=== PATIENT | male | born 1955 | race Caucasian/White ===

== ENCOUNTER 2021-04-03 13:31 | Emergency (ER) | payer MEDICARE ==
[2021-04-03 14:03] VITALS: BP 113/60; O2SAT 97
--- NOTE | 2021-04-03 15:20 | ERPHSYRPT ---
- History of Present Illness Source: patient Patient Subjective Stated Complaint: "fell off back bumper of truck this am and fell onto left shoulder Triage Nursing Assessment: aaox3, walked in, c/o left shoulder pain and mild left hip pain s/p fell off bumper of truck this am. Has abrasion to right lateral knee area, denies head/neck injury. No other injuries noted. Physician History: 65 yo wm fell of truck before ER arrival. Pt complains of L shoulder/L posterior superior iliac spine pain. Pain is mild-mod. He denies LOC/MARTÍNEZ/C,T, or L-spine pain/Abdominal pain/LE pain/chest pain/SOB/Syncope. Occurred: just prior to arrival Reason for Fall: slipped Injuries/Pain Location: upper extremity (L shoulder/L posterior superior iliac spine) Loss of Consciousness: no loss of consciousness Quality: aching Severity of Pain-Max: moderate Severity of Pain-Current: mild Modifying Factors: Improves With: movement Associated Symptoms (Fall): denies symptoms, extremity injury, No abdominal pain, No back pain, No confusion, No chest pain, No dizziness, No headache, No lightheadedness, No muscle spasms, No nausea, No neck pain, No ringing in ears, No seizures, No shortness of breath, No slurred speech, No trouble walking, No vomiting, No vision changes Home Medications: Metoprolol Succinate 50 mg [Toprol Xl 50 MG] 50 mg PO DAILY 04/03/21 [History] Hx Tetanus, Diphtheria Vaccination/Date Given: Yes Hx Influenza Vaccination/Date Given: No Hx Pneumococcal Vaccination/Date Given: No Immunizations Up to Date: No Travel Risk - International Travel Have you traveled outside of the country in past 3 weeks: No - Coronavirus Screening Are you exhibiting any of the following symptoms?: No Close contact with a COVID-19 positive Pt in past 14-21 Days: No - Vaccine Status Have you recieved a Covid-19 vaccination: No - Review of Systems Constitutional: No Symptoms Eyes: No Symptoms Ears, Nose, & Throat: No Symptoms Respiratory: No Symptoms Cardiac: No Symptoms Abdominal/Gastrointestinal: No Symptoms Genitourinary Symptoms: No Symptoms Skin: No Symptoms Neurological: No Symptoms Psychological: No Symptoms Endocrine: No Symptoms Hematologic/Lymphatic: No Symptoms Immunological/Allergic: No Symptoms - Past Medical History Pertinent Past Medical History: Yes Neurological History: No Pertinent History ENT History: No Pertinent History Cardiac History: Other Respiratory History: No Pertinent History Endocrine Medical History: No Pertinent History Musculoskeletal History: No Pertinent History GI Medical History: No Pertinent History History: No Pertinent History Psycho-Social History: No Pertinent History Male Reproductive Disorders: No Pertinent History - Past Surgical History Other Surgical History: "rotator cuff right side, bilateral inguinal hernia repairs. - Social History Smoking Status: Never smoker Drug Use: none Patient Lives Alone: Yes Significant Family History: no pertinent family hx - Nursing Vital Signs Nursing Vital Signs: Initial Vital Signs Temperature 98.5 F 04/03/21 13:51 Pulse Rate 62 04/03/21 13:51 Respiratory Rate 18 04/03/21 13:51 Blood Pressure 113/60 04/03/21 13:51 O2 Sat by Pulse Oximetry 97 04/03/21 13:51 Pain Scale Pain Intensity 4 - Lilian Coma Score Best Eye Response ([place]): (4) open spontaneously Best Verbal Response ([place]): (5) oriented Best Motor Response ([place]): (6) obeys commands Lilian Total: 15 - Physical Exam General Appearance: no apparent distress Head Injury: no evidence of injury Eye Exam: PERRL/EOMI, eyes nml inspection ENT Exam: airway nml, nml ext.inspection, No evidence of ENT injury, No clear fluid (ears), No clear fluid (nose) Neck Exam: supple, trachea midline, full range of motion (C-spine NTTP) Respiratory/Chest Exam: normal breath sounds, No chest tenderness, No respiratory distress, No ecchymosis, No crepitus, No decreased breath sounds, No rales, No rhonchi Cardiovascular Exam: normal heart sounds, regular rate/rhythm, normal peripheral pulses, No murmur Gastrointestinal Exam: soft, normal bowel sounds, No tenderness Back Exam: normal inspection (No T/L-spine TTP, L posterior-superior iliac spine mildly TTP/pelvis stable) Extremity Exam: pelvis stable, evidence of injury (L shoulder TTP posteriorly/No ecchymosis/No deformity/good radial pulse, distal sernsation, and capillary return) Peripheral Pulses: carotid (R): 2+, carotid (L): 2+ Neurologic Exam: alert, oriented x 3, cooperative, 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, normal mood/affect, nml cerebellar function, nml station & gait Skin Exam: normal color, warm, dry SpO2 Interpretation: normal SpO2: 97 O2 Delivery: Room Air - Course Nursing assessment & vital signs reviewed: Yes - Radiology Exams Shoulder X-ray Interpretation: Interpreted by me (L shoulder neg per ER read) Pelvis X-ray Interpretation: Interpreted by me (Pelvis neg per ER read) Ordered Tests: Active Orders 24 hr Category Date Time Status PELVIS (1 OR 2 VIEWS) Stat Exams 04/03/21 14:57 Completed SHOULDER Stat Exams 04/03/21 14:57 Completed Medication Summary Discontinued Medications Generic Name Dose Route Start Last Admin Trade Name Freq PRN Reason Stop Dose Admin Ketorolac Tromethamine 60 mg 04/03/21 15:24 04/03/21 15:27 Toradol 30 Mg Injection IM 04/03/21 15:25 60 mg STAT ONE Administration Ketorolac Tromethamine Confirm 04/03/21 15:27 Toradol 30 Mg Injection Administered 04/03/21 15:28 Dose 60 mg .ROUTE .STClacendix-MED ONE - Progress Progress: improved Progress Note: 04/03/21 15:25 60mg IM Toradol Counseled pt/family regarding: need for follow-up, rad results - Departure Departure Disposition: Home Clinical Impression: Shoulder contusion, Contusion, back Condition: Stable Critical Care Time: No Referrals: Provider,Unknown [Primary Care Provider] - Instructions: Contusion (DC) Additional Instructions: Toradol as needed for pain Ice to contused areas for 12-24 hours Follow up with your family MD for continued Return to ER for increasing pain Prescriptions: Ketorolac Tromethamine [Toradol] 10 mg PO TID PRN #12 tablet PRN Reason: Pain
[2021-04-03] MEDS ORDERED: TORAdol 30 mg Injection IM ONE (15:24)
[2021-04-03] MEDS ORDERED: TORAdol 30 mg Injection ONE (15:27)
[2021-04-03 15:47] VITALS: PULSE 72
--- NOTE | 2021-04-03 19:45 | XRAY ---
Indication: Pain following fall. Comparison: None Single AP pelvis demonstrates a few phleboliths and moderate degenerative changes of the visualized lumbar spine. No other bony, articular, or soft tissue abnormalities.
--- NOTE | 2021-04-03 19:47 | XRAY ---
Indication: Pain following fall. Comparison: None 3 view left shoulder demonstrates mild acromioclavicular degenerative arthropathy, tiny humeral head greater tuberosity degenerative subcortical cysts, and mild degenerative changes of visualized spine. No other bony, articular, or soft tissue abnormalities.
== END 2021-04-03 15:47 | disposition home or self-care (01) ==
LOC: ED 13:31
DX: S40.012A Contusion of left shoulder, initial encounter (principal); S30.0XXA Contusion of lower back and pelvis, initial encounter; W17.89XA Other fall from one level to another, initial encounter
CPT/HCPCS: 72170; 73030; 96372; 99284; J1885